=== PATIENT | male | born 1955 | race African-American/Black ===

== ENCOUNTER 2016-11-22 21:07 | Emergency (ER) | payer OTHER ==
[~2016-11-22] VITALS: Ht 188 cm; Wt 158.8 kg
[2016-11-22 21:30] VITALS: BP 165/93
[2016-11-22] MEDS ORDERED: PRED50TA PO (22:28)
[2016-11-22] MEDS ORDERED: DICL50TA2 PO (22:28)
[2016-11-22] MEDS ORDERED: HYDR-971 PO (22:28)
--- NOTE | 2016-11-22 22:28 | PHYS DOC ---
Past Medical History Past Medical History: A-Fib, CHF, Hypertension Additional Past Medical Histor: GOUT, CARDIOMYOPATHY Past Surgical History: Knee Replacement, Pacemaker Additional Past Surgical Histo: DEFIBRILATOR, BX KNEE Alcohol Use: None Drug Use: None Adult General Chief Complaint Chief Complaint: ANKLE PROBLEM HPI HPI Patient is a 61 year old male with history of hypertension and CHF who presents today with 8 out of 10 throbbing left ankle pain that began today due to gout attack. Patient denies any known injury. Patient states the pain is worse when he is ambulating. Patient states his had previous gout attack long time ago and he was given an anti-inflammatory, hydrocodone, and prednisone. He is currently on allopurinol. Review of Systems Review of Systems Constitutional: Denies fever or chills [] Eyes: Denies change in visual acuity, redness, or eye pain [] HENT: Denies nasal congestion or sore throat [] Musculoskeletal: Left ankle pain due to gout Integument: Denies rash or skin lesions [] Neurologic: Denies headache, focal weakness or sensory changes [] Endocrine: Denies polyuria or polydipsia [] Current Medications Current Medications Current Medications Medications (Trade) Dose Ordered Sig/Miko Start Time Stop Time Status Last Admin Dose Admin Acetaminophen/ Hydrocodone Bitart (Lortab 5/325) 2 tab 1X ONCE 11/22/16 23:00 11/22/16 23:01 Naproxen (Naprosyn) 250 mg 1X ONCE 11/22/16 23:00 11/22/16 23:01 Prednisone (Prednisone) 60 mg 1X ONCE 11/22/16 23:00 11/22/16 23:01 Allergies Allergies Allergies Coded Allergies Type Severity Reaction Last Updated Verified lisinopril Allergy Intermediate 11/22/16 Yes Physical Exam Physical Exam Constitutional: Well developed, well nourished, no acute distress, non-toxic appearance. [] HENT: Normocephalic, atraumatic, bilateral external ears normal, oropharynx moist, no oral exudates, nose normal. [] Skin: Warm, dry, no erythema, no rash. [] Back: No tenderness, no CVA tenderness. [] Extremities: Left ankle with mild amount of soft tissue swelling, slight erythema and TTP but no warmth over the ankle. Full range of motion to the left ankle. +2 left pedal pulse. Cap refill less than 2 seconds the left lower extremity. Sensation intact to the left lower extremity. Neurologic: Alert and oriented X 3, normal motor function, normal sensory function, no focal deficits noted. [] Psychologic: Affect normal, judgement normal, mood normal. [] Current Patient Data Vital Signs Vital Signs Date Time Temp Pulse Resp B/P (MAP) Pulse Ox O2 Delivery O2 Flow Rate FiO2 11/22/16 21:30 98.3 66 18 94 Room Air 98.3 EKG EKG [] Radiology/Procedures Radiology/Procedures [] Course & Med Decision Making Course & Med Decision Making Pertinent Labs and Imaging studies reviewed. (See chart for details) Patient is in the ED with left ankle pain due to gout attack. His had similar episode before, he states previously his had to take an anti-inflammatory, prednisone, and hydrocodone. He is currently on allopurinol. I offered him Colchicine because it requires labs he refused. He was given prescription for prednisone baclofen neck and hydrocodone very short supply. He is to follow-up with his own doctor on Friday next week. Provided return precautions and discharged in stable condition. Dragon Disclaimer Dragon Disclaimer This electronic medical record was generated, in whole or in part, using a voice recognition dictation system. Departure Departure Impression: Primary Impression: Gout attack Disposition: , SELF-CARE Condition: STABLE Referrals: JOYA BLAKE (PCP) Follow-up with your doctor next week Patient Instructions: Gout, [id number] Additional Instructions: You were seen for left ankle pain due to gout attack. Take the prescribed medicines as ordered. Follow-up with your doctor next week. Come back to the ED at any point symptoms worsen. Scripts Diclofenac Potassium (DICLOFENAC POTASSIUM) 50 Mg Tablet 1 TAB PO BID, #20 TAB 1 Refill Prov: MUTUNGAJOHN RN GYN 11/22/16 Hydrocodone/Apap 5-325 (NORCO 5-325 TABLET) 1 Each Tablet 1-2 TAB PO Q4-6HRS, #20 TAB Prov: MUTUNGAJOHN RN GYN 11/22/16 Prednisone (PREDNISONE) 50 Mg Tablet 1 TAB PO DAILY, #4 TAB Prov: MUTUNGA,JOHN RN GYN 11/22/16 Problem Qualifiers Primary Impression: Gout attack Gout site: ankle Gout etiology: unspecified cause Laterality: left Qualified Codes: M10.9 - Gout, unspecified MUTUNGA,JOHN RN GYN November 22, 2016 22:28
[2016-11-22] MEDS ORDERED: NAPROXEN 250 MG TABLET PO ONE (23:00)
[2016-11-22] MEDS ORDERED: predniSONE 20 MG TABLET PO ONE (23:00)
[2016-11-22] MEDS ORDERED: HYDROcodone/APAP 5/325MG 1 TAB TABLET PO ONE (23:00)
== END 2016-11-22 22:43 | disposition home or self-care (01) ==
LOC: ER 21:07
DX: M10.9 Gout, unspecified (principal); I48.91 Unspecified atrial fibrillation; I11.0 Hypertensive heart disease with heart failure; I50.9 Heart failure, unspecified; I42.9 Cardiomyopathy, unspecified; Z95.0 Presence of cardiac pacemaker; Z88.8 Allergy status to other drugs, medicaments and biological substances
CPT/HCPCS: 99284; J7512

== ENCOUNTER 2017-06-26 17:17 | Emergency (ER) | payer OTHER | END 2017-06-26 18:06 | disposition home or self-care (01) | LOC: ER 17:17 | DX: M10.471 Other secondary gout, right ankle and foot (principal); I11.0 Hypertensive heart disease with heart failure; I50.9 Heart failure, unspecified; I48.91 Unspecified atrial fibrillation; Z95.0 Presence of cardiac pacemaker; Z95.810 Presence of automatic (implantable) cardiac defibrillator; Z96.659 Presence of unspecified artificial knee joint; Z88.8 Allergy status to other drugs, medicaments and biological substances | CPT/HCPCS: 99283 ==

== ENCOUNTER 2018-11-27 10:46 | Emergency (ER) | payer OTHER ==
[~2018-11-27] VITALS: Ht 188 cm; Wt 145.1 kg
[2018-11-27 10:46] VITALS: BP 136/113
[~2018-11-27 10:46] MED LIST: DICL50TA2 PO; DICL50TA4 PO; HYDR-3164 PO; PRED50TA PO
--- NOTE | 2018-11-27 11:25 | PHYS DOC ---
Past Medical History Past Medical History: A-Fib, CHF, Hypertension Additional Past Medical Histor: GOUT, CARDIOMYOPATHY Past Surgical History: Knee Replacement, Pacemaker Additional Past Surgical Histo: DEFIBRILATOR, BX KNEE Alcohol Use: None Drug Use: None Adult General Chief Complaint Chief Complaint: FOOT INJURY PAIN HPI HPI Patient is a 63 year old male with history of hypertension, A. fib and gout who presents to the ED today complaining of a gout flare up. Patient states for the last couple days he has had increased pain on his right foot and ankle due to gout, he rates the as mild described as sharp. Patient states the pain is worse on touching his right ankle and foot. He states he is on her period now, he states he ran out of the medication a couple weeks ago, he states he had to wait for almost 2 weeks before he received the medication. He states he resumed Allopurinol as soon as he got it. He states typically when he has a flare up he comes to the ED and he gets pain medicine. Denies any fever. Review of Systems Review of Systems Constitutional: Denies fever or chills [] Musculoskeletal: Pupils right foot and right ankle pain Integument: Denies rash or skin lesions [] Neurologic: Denies headache, focal weakness or sensory changes [] All other systems were reviewed and found to be within normal limits, except as documented in this note. Allergies Allergies Allergies Coded Allergies Type Severity Reaction Last Updated Verified lisinopril Allergy Intermediate 11/22/16 Yes Physical Exam Physical Exam Constitutional: Well developed, well nourished, no acute distress, non-toxic appearance. [] Skin: Warm, dry, no erythema, no rash. [] Back: No tenderness, no CVA tenderness. [] Extremities: Right foot with no obvious deformity, right ankle with no obvious deformity. Tenderness on palpation around the ankle. No warmth to the ankle. No tenderness of the foot. Full range of motion to the right foot and ankle. Right pedal pulse. Cap refill less than 2 seconds. Neurologic: Alert and oriented X 3, normal motor function, normal sensory function, no focal deficits noted. [] Psychologic: Affect normal, judgement normal, mood normal. [] EKG EKG [] Radiology/Procedures Radiology/Procedures [] Course & Med Decision Making Course & Med Decision Making Pertinent Labs and Imaging studies reviewed. (See chart for details) This is a 63-year-old male patient presenting to the ED today with right ankle and foot pain due to gout flareup. Patient is currently on Allopurinol which he has somehow ran out and couldn't get a refills right away. He states he typically comes to the ED and receives pain medications for gout flareup. We talked about colchicine, he has no labs to check renal function prior to being put on colchicine, he is requesting no labs right now. RX for pain medicines given, D/c to home. F/u with PCP next week. Dragon Disclaimer Dragon Disclaimer This electronic medical record was generated, in whole or in part, using a voice recognition dictation system. Departure Departure Impression: Primary Impression: Gout attack Disposition: HOME, SELF-CARE Condition: STABLE Referrals: JOYA BLAKE (PCP) Follow-up in the course of next week Patient Instructions: Gout, [id number] Additional Instructions: You were evaluated for gout flareup. Follow-up with your doctor in the course of this week or next week. Come back to the ED at any point symptoms worsen. Scripts Hydrocodone/Apap 5-325 (NORCO 5-325 TABLET) 1 Each Tablet 1 TAB PO Q6-8HRS PRN for PAIN, #16 TAB Prov: JOHN MIGUEL APRN 11/27/18 Diclofenac Sodium (DICLOFENAC SODIUM) 50 Mg Tablet.dr 1 TAB PO BID, #20 TAB 0 Refills Prov: JOHN MIGUEL APRN 11/27/18 Prednisone (PREDNISONE) 50 Mg Tablet 1 TAB PO DAILY, #5 TAB Prov: JOHN MIGUEL APRN 11/27/18 Problem Qualifiers Primary Impression: Gout attack Gout site: ankle Gout etiology: unspecified cause Laterality: right Qualified Codes: M10.9 - Gout, unspecified JOHN MIGUEL APRN November 27, 2018 11:25
[2018-11-27] MEDS ORDERED: PRED50TA PO (11:42)
[2018-11-27] MEDS ORDERED: HYDR-3164 PO (11:42)
[2018-11-27] MEDS ORDERED: DICL50TA4 PO (11:42)
== END 2018-11-27 12:01 | disposition home or self-care (01) ==
LOC: ER 10:46
DX: M10.9 Gout, unspecified (principal); M79.671 Pain in right foot; M25.571 Pain in right ankle and joints of right foot; I48.91 Unspecified atrial fibrillation; I11.0 Hypertensive heart disease with heart failure; I50.9 Heart failure, unspecified; Z95.0 Presence of cardiac pacemaker; Z96.659 Presence of unspecified artificial knee joint; Z88.8 Allergy status to other drugs, medicaments and biological substances
CPT/HCPCS: 99283

== ENCOUNTER 2019-04-17 20:22 | Emergency (ER) | payer OTHER ==
[~2019-04-17] VITALS: Ht 188 cm; Wt 147.4 kg
[2019-04-17 21:02] VITALS: BP 150/69
[2019-04-17] MEDS ORDERED: COLC0.6T34 PO (21:34)
[2019-04-17] MEDS ORDERED: METH4TAB2 PO (21:34)
[2019-04-17] MEDS ORDERED: DICL50TA4 PO (21:34)
--- NOTE | 2019-04-17 21:35 | PHYS DOC ---
Past Medical History Past Medical History: A-Fib, CHF, Hypertension Additional Past Medical Histor: GOUT, CARDIOMYOPATHY Past Surgical History: Knee Replacement, Pacemaker Additional Past Surgical Histo: DEFIBRILATOR, BX KNEE Alcohol Use: None Drug Use: None Adult General Chief Complaint Chief Complaint: FOOT INJURY PAIN HPI HPI Patient is a 63 year old male who presents with states has gout and has been getting a gouty attack once every 4 months. Patient states that last night his right leg great toe joint began to swell. Patient rates his pain a 7 out of 10. Patient states the last time this happened they gave him steroid, pain medicine, and Diclofenac. Review of Systems Review of Systems Musculoskeletal: Denies back pain. Right great toe joint pain [] All other systems were reviewed and found to be within normal limits, except as documented in this note. Current Medications Current Medications Current Medications Medications (Trade) Dose Ordered Sig/Miko Start Time Stop Time Status Last Admin Dose Admin Colchicine (Colcrys) 1.2 mg 1X ONCE 04/17/19 21:45 04/17/19 21:46 DC 04/17/19 21:45 1.2 MG Allergies Allergies Allergies Coded Allergies Type Severity Reaction Last Updated Verified lisinopril Allergy Intermediate 11/22/16 Yes Physical Exam Physical Exam Constitutional: Well developed, well nourished, no acute distress, non-toxic appearance. [] Skin: Warm, dry, no erythema, no rash. [] Extremities: Right great toe tenderness, no cyanosis, no clubbing, ROM intact, Right great toe 2+ edema. [] Neurologic: Alert and oriented X 3, normal motor function, normal sensory function, no focal deficits noted. [] Psychologic: Affect normal, judgement normal, mood normal. [] Current Patient Data Vital Signs Vital Signs Date Time Temp Pulse Resp B/P (MAP) Pulse Ox O2 Delivery O2 Flow Rate FiO2 04/17/19 21:02 98.0 60 20 150/69 (96) 98 Room Air 98.0 EKG EKG [] Radiology/Procedures Radiology/Procedures [] Course & Med Decision Making Course & Med Decision Making Alert and oriented. Speaks in full clear sentences. Ambulatory with a steady gait. Patient's right great toe joint is 2+ edema and tender to palpation. Pedal pulses strong and present. Denies any numbness or tingling. Denies fevers. Patient has full range of motion of his toes. No pedal edema. Skin pink warm and dry. No associated heat or redness to the joint. Patient is given Colchicine in the ED and a prescription. Patient to follow up with his primary care provider. Yoandy Disclaimer Yoandy Disclaimer This electronic medical record was generated, in whole or in part, using a voice recognition dictation system. Departure Departure Impression: Primary Impression: Gout attack Disposition: HOME, SELF-CARE Condition: STABLE Referrals: JOYA BLAKE (PCP) Patient Instructions: Gout Additional Instructions: Take medications as prescribed. Follow-up with primary care provider. Scripts Colchicine (COLCRYS) 0.6 Mg Tablet 1 TAB PO DAILY for gout pain for 3 Days, #3 TAB 0 Refills Prov: NIECY BOOTH APRN 04/17/19 Methylprednisolone (MEDROL) 4 Mg Tab.ds.pk 1 PKG PO UD, #1 PKG Prov: NIECY BOOTH APRN 04/17/19 Diclofenac Sodium (DICLOFENAC SODIUM) 50 Mg Tablet.dr 1 TAB PO BID, #20 TAB 1 Refill Prov: NIECY BOOTH APRN 04/17/19 Problem Qualifiers Primary Impression: Gout attack Gout site: toe Gout etiology: unspecified cause Laterality: right Qualified Codes: M10.9 - Gout, unspecified NIECY BOOTH APRN Apr 17, 2019 21:35
[2019-04-17] MEDS ORDERED: COLCHICINE 0.6 MG TABLET PO ONE (21:45)
== END 2019-04-17 21:55 | disposition home or self-care (01) ==
LOC: ER 20:22
DX: M10.9 Gout, unspecified (principal); I11.0 Hypertensive heart disease with heart failure; I50.9 Heart failure, unspecified; I48.91 Unspecified atrial fibrillation; Z95.0 Presence of cardiac pacemaker; Z96.659 Presence of unspecified artificial knee joint; Z88.8 Allergy status to other drugs, medicaments and biological substances
CPT/HCPCS: 99283